=== PATIENT | male | born 1975 ===

== ENCOUNTER 2017-04-26 14:36 | Inpatient (IN) | payer OTHER ==
[2017-04-26] MEDS ORDERED: Sodium Chloride 0.9% 1,000 ML IV STA ×2 (16:06→19:59)
[2017-04-26] MEDS ORDERED: HYDROmorphone 0.5 mg/0.5 ml ISec IVP STA (16:06)
[2017-04-26 16:31] LABS: BASO # 0.1 K/uL (0.0-0.2); BASO % 0.5 % (0.0-2.0); EOS # 0.1 K/uL (0.0-0.7); EOS % 0.4 % (0.0-4.0); HEMATOCRIT 46.3 % (35.0-51.0); LYMPH # 1.4 K/uL (1.0-4.3); LYMPH % 8.2 % (20.0-40.0); MEAN CELL VOLUME 79.1 fl (80.0-94.0); MEAN CORPUSCULAR HEMOGLOBIN 26.4 pg (27.0-31.0); MEAN CORPUSCULAR HGB CONC 33.4 g/dL (33.0-37.0); MEAN PLATELET VOLUME 7.8 fl (7.2-11.7); MONO # 1.4 K/uL (0.0-0.8); MONO % 7.9 % (0.0-10.0); NEUT # 14.5 K/uL (1.8-7.0); NRBC % 0.2 % (0.0-0.0); PLATELET COUNT 174 K/uL (130-400); RED CELL DISTRIBUTION WIDTH 13.6 % (11.5-14.5); WHITE BLOOD COUNT 17.5 K/uL (4.8-10.8)
--- NOTE | 2017-04-26 16:32 | ED PDOC ---
HPI: Abdomen Time Seen by Provider: 04/26/17 15:28 Chief Complaint (Nursing): Abdominal Pain Chief Complaint (Provider): Abdominal Pain History Per: Patient History/Exam Limitations: no limitations Onset/Duration Of Symptoms: Days (x1) Location Of Pain/Discomfort: RLQ Associated Symptoms: Nausea. denies: Vomiting, Diarrhea, Constipation Additional Complaint(s): Davis Blanchard is a 41 year old male, with no past medical history, who presents to the emergency department complaining of abdominal pain associated with nausea onset since midnight. Patient saw primary care physician this morning and was told if pain moves to right lower quadrant to go to the ED. Patient denies any vomiting, constipation or diarrhea. No further medical complaints. PMD: None provided. Past Medical History Reviewed: Historical Data, Nursing Documentation, Vital Signs Vital Signs: Last Vital Signs Temp 98.5 F 04/28/17 08:40 Pulse 59 L 04/28/17 08:40 Resp 20 04/28/17 08:40 BP 124/76 04/28/17 08:40 Pulse Ox 96 04/28/17 08:40 - Surgical History Surgical History: No Surg Hx - Family History Family History: States: Unknown Family Hx - Social History Current smoker - smoking cessation education provided: No Alcohol: None Drugs: Denies - Home Medications Home Medications: Ambulatory Orders Medication Instructions Recorded Acetaminophen [Tylenol 325mg tab] 650 mg PO Q4 PRN tab 04/28/17 Amoxicillin/Clavulanate [Augmentin 1 tab PO BID #14 tab 04/28/17 875 MG-125 MG] oxyCODONE/Acetaminophen [Percocet 1 tab PO Q6 PRN #10 tab 04/28/17 5/325 mg Tab] - Allergies Allergies/Adverse Reactions: Allergies Allergy/AdvReac Type Severity Reaction Status Date / Time No Known Allergies Allergy Verified 04/26/17 15:07 Review of Systems ROS Statement: Except As Marked, All Systems Reviewed And Found Negative Gastrointestinal: Positive for: Nausea, Abdominal Pain (RLQ). Negative for: Vomiting, Diarrhea, Constipation Physical Exam - Reviewed Nursing Documentation Reviewed: Yes Vital Signs Reviewed: Yes - Physical Exam Appears: Positive for: Non-toxic. Negative for: Well (Moderate painful distress ) Head Exam: Positive for: ATRAUMATIC, NORMAL INSPECTION, NORMOCEPHALIC Skin: Positive for: Normal Color, Warm, Dry Eye Exam: Positive for: EOMI, Normal appearance, PERRL Neck: Positive for: Normal, Painless ROM, Supple Cardiovascular/Chest: Positive for: Regular Rate, Rhythm. Negative for: Murmur Respiratory: Positive for: Normal Breath Sounds. Negative for: Respiratory Distress Gastrointestinal/Abdominal: Positive for: Normal Exam, Bowel Sounds, Tenderness (right lower quadrant ), Guarding Back: Positive for: Normal Inspection (No midline tenderness). Negative for: L CVA Tenderness, R CVA Tenderness Extremity: Positive for: Normal ROM. Negative for: Pedal Edema, Deformity, Swelling Neurologic/Psych: Positive for: Alert, Oriented - Laboratory Results Result Diagrams: 04/28/17 05:30 04/28/17 05:30 - ECG O2 Sat by Pulse Oximetry: 98 (RA) Pulse Ox Interpretation: Normal Medical Decision Making Medical Decision Making: Initial Impression: Appendicitis Initial Plan: --Abd & Pelvis IV Contrast only [CT] --EKG --Comp Metabolic Panel --CBC w/ differential --PTT --PT --Dilaudid 1 mg IVP --NS IV 1,000 ml @ 1,000 mls/hr --Zofran Inj 4 mg IV --Urinalysis --reevaluation Accession No. : [id number] Patient Name / ID : GLADIS KELLY H / [id number] Exam Date : 04/26/2017 18:21:08 ( Approved ) Study Comment : Sex / Age : M / 41Y Creator : Shannon Melvin MD Dictator : Shannon Melvin MD Customer Support Specialist : Hair Blender : Approver2 : Report Date : 04/27/2017 09:11:57 My Comment : PROCEDURE: CT Abdomen and Pelvis with contrast HISTORY: RLQ pain COMPARISON: None. TECHNIQUE: CT scan of the abdomen and pelvis was performed without administration of intravenous contrast. Oral contrast was not administered. Coronal and sagittal reformatted images were obtained. Contrast dose: 95 mL Omnipaque 300 Radiation dose: Total exam DLP = 920.31 mGy-cm. This CT exam was performed using one or more of the following dose reduction techniques: Automated exposure control, adjustment of the mA and/or kV according to patient size, and/or use of iterative reconstruction technique. FINDINGS: LOWER THORAX: There is bibasilar subsegmental atelectasis. LIVER: There is mild hepatomegaly and there is diffuse fatty infiltration. No gross lesion or ductal dilatation. GALLBLADDER AND BILE DUCTS: Unremarkable. PANCREAS: The pancreas is normal in size and there is homogeneous enhancement. No gross lesion or ductal dilatation. SPLEEN: There is borderline splenomegaly. ADRENALS: Both adrenal glands are normal in size without discrete nodule. KIDNEYS AND URETERS: Both kidneys are normal in size and there is homogeneous enhancement. No hydronephrosis. No solid mass. VASCULATURE: No aortic aneurysm. BOWEL: The small bowel loops are normal in caliber. The colon is unremarkable. No bowel dilatation or obstruction. APPENDIX: A long retrocecal appendix is distended and measures 13 mm. There is wall thickening with significant surrounding inflammatory changes and small amount of fluid in the right lower quadrant. No perforation or abscess PERITONEUM: Unremarkable. No free fluid. No free air. LYMPH NODES: Unremarkable. No enlarged lymph nodes. BLADDER: Normal in appearance. REPRODUCTIVE: Unremarkable. BONES: No acute fracture. Within normal limits for the patient's age. OTHER FINDINGS: None. IMPRESSION: Acute appendicitis. No perforation or abscess. Mild hepatosplenomegaly. Fatty liver. A preliminary report was provided by [facility] services. Scribe Attestation: Documented by Davey Anand, acting as a scribe for Pia Laurent MD Provider Scribe Attestation: All medical record entries made by the Scribe were at my direction and personally dictated by me. I have reviewed the chart and agree that the record accurately reflects my personal performance of the history, physical exam, medical decision making, and the department course for this patient. I have also personally directed, reviewed, and agree with the discharge instructions and disposition. Disposition - Clinical Impression Clinical Impression: Appendicitis - Patient ED Disposition Is Patient to be Admitted: Yes - Disposition Disposition Time: 19:57 Condition: STABLE - Pt Status Changed To: Hospital Disposition Of: Inpatient - Admit Certification Admit to Inpatient:: After my assessment, the patient will require hospitalization for at least two midnights. This is because of the severity of symptoms shown, intensity of services needed, and/or the medical risk in this patient being treated as an outpatient. - POA Present On Arrival: None
[2017-04-26 16:40] LABS: ALB/GLOB RATIO 1.5 (1.0-2.1); ALKALINE PHOSPHATASE 74 U/L (38-126); ALT/SGPT 59 U/L (21-72); AST/SGOT 40 U/L (17-59); BLOOD UREA NITROGEN 12 mg/dl (9-20); CARBON DIOXIDE 27 mmol/L (22-30); CHLORIDE 100 mmol/L (98-107); GFR AFRICAN-AMERICAN > 60; GLUCOSE,RANDOM 117 mg/dL (75-110); PARTIAL THROMBOPLASTIN TIME 27.9 Seconds (25.6-37.1); SODIUM 140 mmol/l (132-148)
[2017-04-26 16:58] LABS: RBC URINE 2 /hpf (0-3); URINE BACTERIA RARE (<OCC); URINE BILIRUBIN NEGATIVE (NEGATIVE); URINE BLOOD NEGATIVE (NEGATIVE); URINE COLOR YELLOW (YELLOW); URINE GLUCOSE (UA) NEG (Normal); URINE KETONE TRACE mg/dL (NEGATIVE); URINE LEUKOCYTE ESTERASE NEG Leu/uL (Negative); URINE PROTEIN 30 mg/dL (NEGATIVE); URINE UROBILINOGEN 0.2-1.0 mg/dL (0.2-1.0); WBC URINE < 1 /hpf (0-5)
[2017-04-26 17:47] LABS: EOSINOPHIL 1 % (0-7); LARGE PLATELETS PRESENT; NEUTROPHIL 78 % (42-75); TOTAL CELLS COUNTED 100
[2017-04-26] MEDS ORDERED: Iohexol 300 100 ML IJ ONE (18:14)
[2017-04-26] MEDS ORDERED: Sodium Chloride 0.9% 50 ML IV ONE (18:14)
--- NOTE | 2017-04-26 19:35 | ED PDOC ---
- Laboratory Results Result Diagrams: 04/28/17 05:30 04/28/17 05:30 - ECG O2 Sat by Pulse Oximetry: 98 (RA) Medical Decision Making Medical Decision Makin Patient endorsed to me by Dr. Laurent. Rule out appendicitis 1925 Abd/Pelvis CT FINDINGS: Lower thorax: Heart size is normal. There is a small hiatal hernia. There is atelectasis and scarring at the lung bases. ABDOMEN: Liver: The liver is mildly enlarged. There is fatty infiltration. Gallbladder and bile ducts: unremarkable Pancreas: unremarkable Spleen: unremarkable Adrenals: unremarkable Kidneys and ureters: unremarkable Stomach and bowel: unremarkable Appendix: Stomach is almost completely empty. Rotation is normal. There are mildly dilated small bowel loops in the left flank. There are air-fluid levels. Dilatation decreases distally. There is mild terminal ileal wall thickening. The appendix is retrocecal. There is diffuse wall thickening there is only minimal fluid in the appendiceal lumen. There is adjacent fluid in the right flank. Maximal diameter is approximately 12 mm. Colon is incompletely distended which limits evaluation. PELVIS: Bladder: unremarkable Reproductive: Seminal vesicles and prostate are unremarkable. ABDOMEN and PELVIS: Intraperitoneal space: There is inflammation and edema in the right flank. There is fluid in the right lower quadrant in right colic gutter.There is no free air. Bones/joints: unremarkable Soft tissues: There is a small fat containing umbilical hernia. Vasculature: Vascular structures are unremarkable. Lymph nodes: There is shotty mesenteric adenopathy. There are no acute osseous abnormalities. There is partial ankylosis of the sacroiliac joints left greater than right. There is a small bone islands in the femoral heads IMPRESSION: Retrocecal appendix with appendicitis, adjacent fluid suggest rupture; ileus; mildly enlarged fatty liver Additional findings as described above. 1929 Received call from radiologist. Its a ruptured retrocecal appendicitis. [address] García. He will not operate but wants [employer] to see patient. He wants morning labs and agrees with antibiotics that I ordered. 2029 -Spoke to salesperson surgical appliances and will see the patient. iv abx ordered, pt made aware of diagnosis. dx ruptured appendicitis Disposition Counseled Patient/Family Regarding: Studies Performed, Diagnosis - Clinical Impression Clinical Impression: Appendicitis - POA Present On Arrival: None - Disposition Disposition: Routine/Home Disposition Time: 19:30 Condition: STABLE
[2017-04-26] MEDS ORDERED: Piperacillin/Tazobact 4.5 GM in Sodium Chloride 0.9% 100 ML IVPB STA (19:40)
[2017-04-26] MEDS ORDERED: HYDROmorphone 0.5 mg/0.5 ml ISec IVP PRN (21:06)
--- NOTE | 2017-04-26 21:49 | CP.PCM.CON ---
<Pratima Velazquez - Last Filed: 04/26/17 21:59> History of Present Illness - History of Present Illness History of Present Illness: Surgery: Dr. García Reason for consult: perforated appendicitis CC: Abdominal pain, nausea HPI: Patient is a 41 y/o male who presents complaining of acute onset of diffuse abdominal pain that started around midnight last night. Patient reports the pain woke him from sleep. He describes the pain as sharp and unrelenting. He thought he might have a "stomach bug" so her reports attempting to induce vomiting which did not relieve the pain. He reports associated diarrhea. He was evaluated by primary care doctor who instructed patient to go to ER if pain localized to right side. Patient stated throughout that day he noticed the pain migrating to the RLQ primarily although the pain remained diffuse as well. He reports decreased appetite and small episodes of emesis with attempts of eating. He denies f/c. PMH: denies PSH: tonsillectomy Social: , denies ETOH, tobacco, or drug use Review of Systems - Review of Systems All systems: reviewed and no additional remarkable complaints except Review of Systems: unless stated in HPI Past Patient History - Infectious Disease Hx of Infectious Diseases: None - Past Social History Alcohol: None Drugs: Denies - CARDIAC Hx Cardiac Disorders: No - PULMONARY Hx Respiratory Disorders: No - NEUROLOGICAL Hx Neurological Disorder: No - HEENT Hx HEENT Problems: No - ENDOCRINE/METABOLIC Hx Endocrine Disorders: No - MUSCULOSKELETAL/RHEUMATOLOGICAL Hx Musculoskeletal Disorders: No - PSYCHIATRIC Hx Substance Use: No - SURGICAL HISTORY Hx Surgeries: No Meds Allergies/Adverse Reactions: Allergies Allergy/AdvReac Type Severity Reaction Status Date / Time No Known Allergies Allergy Verified 04/26/17 15:07 - Medications Medications: Current Medications Acetaminophen (Tylenol 325mg Tab) 650 mg PO Q4 PRN PRN Reason: Fever >100.4 F Hydromorphone HCl (Dilaudid) 1 mg IVP Q4 PRN PRN Reason: Pain, severe (8-10) Sodium Chloride (Sodium Chloride 0.9%) 1,000 mls @ 150 mls/hr IV .Q6H40M STA Stop: 04/27/17 02:38 Last Admin: 04/26/17 20:08 Dose: 150 mls/hr Piperacillin Sod/Tazobactam (Sod 3.375 gm/ Sodium Chloride) 100 mls @ 100 mls/ hr IVPB Q6 DANIELA PRN Reason: Protocol Sodium Chloride (Sodium Chloride 0.9%) 1,000 mls @ 150 mls/hr IV .Q6H40M [facility] Stop: 04/27/17 21:08 Morphine Sulfate (Morphine) 4 mg IVP Q4 PRN PRN Reason: Pain, moderate (4-7) Ondansetron HCl (Zofran Inj) 4 mg IVP Q6 PRN PRN Reason: Nausea/Vomiting Physical Exam - Constitutional Appears: Non-toxic, No Acute Distress - Head Exam Head Exam: ATRAUMATIC, NORMOCEPHALIC - Eye Exam Eye Exam: EOMI, Normal appearance - ENT Exam ENT Exam: Mucous Membranes Moist - Respiratory Exam Respiratory Exam: NORMAL BREATHING PATTERN. absent: Respiratory Distress - Cardiovascular Exam Cardiovascular Exam: REGULAR RHYTHM. absent: Tachycardia - GI/Abdominal Exam GI & Abdominal Exam: Guarding (RLQ), Rebound, Soft, Tenderness (+McBurney's, + Rovsing's ). absent: Hernia, Rigid - Extremities Exam Extremities exam: Positive for: normal inspection. Negative for: calf tenderness - Neurological Exam Neurological exam: Alert, Oriented x3 - Psychiatric Exam Psychiatric exam: Normal Affect, Normal Mood - Skin Skin Exam: Dry, Normal Color, Warm Results - Vital Signs Recent Vital Signs: Last Vital Signs Temp 98.8 F 04/26/17 15:04 Pulse 79 04/26/17 15:04 Resp 16 04/26/17 15:04 BP 121/80 04/26/17 15:04 Pulse Ox 98 04/26/17 21:10 - Labs Result Diagrams: 04/26/17 16:25 04/26/17 16:25 Labs: Laboratory Results - last 24 hr 04/26/17 04/26/17 04/26/17 16:25 16:25 16:25 WBC 17.5 H RBC 5.86 Hgb 15.5 Hct 46.3 MCV 79.1 L MCH 26.4 L MCHC 33.4 RDW 13.6 Plt Count 174 MPV 7.8 Neut % (Auto) 83.0 H Lymph % (Auto) 8.2 L Harris % (Auto) 7.9 Eos % (Auto) 0.4 Baso % (Auto) 0.5 Neut # 14.5 H Lymph # 1.4 Harris # 1.4 H Eos # 0.1 Baso # 0.1 Neutrophils % (Manual) 78 H Band Neutrophils % 3 H Lymphocytes % (Manual) 8 L Monocytes % (Manual) 10 Eosinophils % (Manual) 1 Platelet Estimate Normal Large Platelets Present Hypochromasia (manual) Slight Microcytosis (manual) Slight PT 12.2 INR 1.1 APTT 27.9 Sodium 140 Potassium 4.0 Chloride 100 Carbon Dioxide 27 Anion Gap 17 BUN 12 Creatinine 0.9 Est GFR ( Amer) > 60 Est GFR (Non-Af Amer) > 60 Random Glucose 117 H Calcium 9.0 Total Bilirubin 2.0 H AST 40 ALT 59 Alkaline Phosphatase 74 Total Protein 8.0 Albumin 4.8 Globulin 3.2 Albumin/Globulin Ratio 1.5 Urine Color Urine Clarity Urine pH Ur Specific Sidney Urine Protein Urine Glucose (UA) Urine Ketones Urine Blood Urine Nitrate Urine Bilirubin Urine Urobilinogen Ur Leukocyte Esterase Urine RBC (Auto) Urine Microscopic WBC Urine Bacteria 04/26/17 16:48 WBC RBC Hgb Hct MCV MCH MCHC RDW Plt Count MPV Neut % (Auto) Lymph % (Auto) Harris % (Auto) Eos % (Auto) Baso % (Auto) Neut # Lymph # Harris # Eos # Baso # Neutrophils % (Manual) Band Neutrophils % Lymphocytes % (Manual) Monocytes % (Manual) Eosinophils % (Manual) Platelet Estimate Large Platelets Hypochromasia (manual) Microcytosis (manual) PT INR APTT Sodium Potassium Chloride Carbon Dioxide Anion Gap BUN Creatinine Est GFR ( Amer) Est GFR (Non-Af Amer) Random Glucose Calcium Total Bilirubin AST ALT Alkaline Phosphatase Total Protein Albumin Globulin Albumin/Globulin Ratio Urine Color Yellow Urine Clarity Slighty-cloudy Urine pH 6.0 Ur Specific Sidney 1.027 Urine Protein 30 Urine Glucose (UA) Neg Urine Ketones Trace Urine Blood Negative Urine Nitrate Negative Urine Bilirubin Negative Urine Urobilinogen 0.2-1.0 Ur Leukocyte Esterase Neg Urine RBC (Auto) 2 Urine Microscopic WBC < 1 Urine Bacteria Rare Assessment & Plan - Assessment and Plan (Free Text) Assessment: 41 y/o male w/ acute perforated appendicitis Plan: -NPO -IVFs -IV abx -pain control -serial abd exams -possible OR tomorrow pending clinical course -d/w Dr. García AKWhite PGY3 <Yash García - Last Filed: 04/27/17 13:25> History of Present Illness - History of Present Illness History of Present Illness: Patient was seen and examined at the bedside. Agree with resident's note above. Meds - Medications Medications: Current Medications Acetaminophen (Tylenol 325mg Tab) 650 mg PO Q4 PRN PRN Reason: Fever >100.4 F Dexamethasone (Decadron Inj) 4 mg IVP ONCE PRN PRN Reason: Nausea/Vomiting Stop: 04/27/17 14:59 Enoxaparin Sodium (Lovenox) 40 mg SC DAILY DANIELA PRN Reason: Protocol Hydromorphone HCl (Dilaudid) 1 mg IVP Q4 PRN PRN Reason: Pain, severe (8-10) Hydromorphone HCl (Dilaudid) 0.5 mg IVP Q5M PRN PRN Reason: Pain, severe (8-10) Stop: 04/27/17 14:58 Piperacillin Sod/Tazobactam (Sod 3.375 gm/ Sodium Chloride) 100 mls @ 100 mls/ hr IVPB Q6 DANIELA PRN Reason: Protocol Last Admin: 04/27/17 09:58 Dose: 100 mls/hr Sodium Chloride (Sodium Chloride 0.9%) 1,000 mls @ 150 mls/hr IV .Q6H40M [facility] Stop: 04/27/17 21:08 Last Admin: 04/27/17 12:03 Dose: Not Given Metoclopramide HCl (Reglan) 10 mg IVP ONCE PRN PRN Reason: Nausea/Vomiting Stop: 04/27/17 14:59 Morphine Sulfate (Morphine) 4 mg IVP Q4 PRN PRN Reason: Pain, moderate (4-7) Ondansetron HCl (Zofran Inj) 4 mg IVP Q6 PRN PRN Reason: Nausea/Vomiting Results - Vital Signs Recent Vital Signs: Last Vital Signs Temp 98.9 F 04/27/17 07:24 Pulse 73 04/27/17 07:24 Resp 19 04/27/17 07:24 BP 112/57 L 04/27/17 07:24 Pulse Ox 96 04/27/17 07:24 - Labs Result Diagrams: 04/27/17 06:00 04/27/17 05:40 Labs: Laboratory Results - last 24 hr 04/26/17 04/26/1704/26/17 16:25 16:25 16:25 WBC 17.5 H RBC 5.86 Hgb 15.5 Hct 46.3 MCV 79.1 L MCH 26.4 L MCHC 33.4 RDW 13.6 Plt Count 174 MPV 7.8 Neut % (Auto) 83.0 H Lymph % (Auto) 8.2 L Harris % (Auto) 7.9 Eos % (Auto) 0.4 Baso % (Auto) 0.5 Neut # 14.5 H Lymph # 1.4 Harris # 1.4 H Eos # 0.1 Baso # 0.1 Neutrophils % (Manual) 78 H Band Neutrophils % 3 H Lymphocytes % (Manual) 8 L Monocytes % (Manual) 10 Eosinophils % (Manual) 1 Platelet Estimate Normal Large Platelets Present Hypochromasia (manual) Slight Microcytosis (manual) Slight PT 12.2 INR 1.1 APTT 27.9 Sodium 140 Potassium 4.0 Chloride 100 Carbon Dioxide 27 Anion Gap 17 BUN 12 Creatinine 0.9 Est GFR ( Amer) > 60 Est GFR (Non-Af Amer) > 60 Random Glucose 117 H Calcium 9.0 Total Bilirubin 2.0 H AST 40 ALT 59 Alkaline Phosphatase 74 Total Protein 8.0 Albumin 4.8 Globulin 3.2 Albumin/Globulin Ratio 1.5 Urine Color Urine Clarity Urine pH Ur Specific Sidney Urine Protein Urine Glucose (UA) Urine Ketones Urine Blood Urine Nitrate Urine Bilirubin Urine Urobilinogen Ur Leukocyte Esterase Urine RBC (Auto) Urine Microscopic WBC Urine Bacteria 04/26/17 04/27/17 04/27/17 16:48 05:40 06:00 WBC 12.5 H RBC 5.42 Hgb 14.5 Hct 43.6 MCV 80.5 MCH 26.7 L MCHC 33.2 RDW 13.7 Plt Count 171 MPV 7.8 Neut % (Auto) 72.2 Lymph % (Auto) 17.0 L Harris % (Auto) 6.6 Eos % (Auto) 3.5 Baso % (Auto) 0.7 Neut # 9.0 H Lymph # 2.1 Harris # 0.8 Eos # 0.4 Baso # 0.1 Neutrophils % (Manual) Band Neutrophils % Lymphocytes % (Manual) Monocytes % (Manual) Eosinophils % (Manual) Platelet Estimate Large Platelets Hypochromasia (manual) Microcytosis (manual) PT INR APTT Sodium 141 Potassium 4.2 Chloride 105 Carbon Dioxide 26 Anion Gap 14 BUN 12 Creatinine 1.0 Est GFR ( Amer) > 60 Est GFR (Non-Af Amer) > 60 Random Glucose 113 H Calcium 8.4 Total Bilirubin 2.2 H AST 30 ALT 43 Alkaline Phosphatase 65 Total Protein 7.1 Albumin 4.1 Globulin 3.0 Albumin/Globulin Ratio 1.4 Urine Color Yellow Urine Clarity Slighty-cloudy Urine pH 6.0 Ur Specific Sidney 1.027 Urine Protein 30 Urine Glucose (UA) Neg Urine Ketones Trace Urine Blood Negative Urine Nitrate Negative Urine Bilirubin Negative Urine Urobilinogen 0.2-1.0 Ur Leukocyte Esterase Neg Urine RBC (Auto) 2 Urine Microscopic WBC < 1 Urine Bacteria Rare
[2017-04-26] MEDS ORDERED: Morphine 4 MG/ML VIAL IVP PRN (23:50)
[2017-04-27] MEDS: Piperacillin/Tazobact 3.375 GM in Sodium Chloride 0.9% 100 ML IVPB SCH ×5 (04:42→21:11)
[2017-04-27 06:48] LABS: BASO # 0.1 K/uL (0.0-0.2); BASO % 0.7 % (0.0-2.0); EOS # 0.4 K/uL (0.0-0.7); EOS % 3.5 % (0.0-4.0); HEMATOCRIT 43.6 % (35.0-51.0); LYMPH # 2.1 K/uL (1.0-4.3); MEAN CELL VOLUME 80.5 fl (80.0-94.0); MEAN CORPUSCULAR HEMOGLOBIN 26.7 pg (27.0-31.0); MEAN CORPUSCULAR HGB CONC 33.2 g/dL (33.0-37.0); MEAN PLATELET VOLUME 7.8 fl (7.2-11.7); MONO # 0.8 K/uL (0.0-0.8); MONO % 6.6 % (0.0-10.0); NEUT % 72.2 % (50.0-75.0); NRBC % 0.2 % (0.0-0.0); RED CELL DISTRIBUTION WIDTH 13.7 % (11.5-14.5); WHITE BLOOD COUNT 12.5 K/uL (4.8-10.8)
--- NOTE | 2017-04-27 07:45 | CP.PCM.HP ---
History of Present Illness - History of Present Illness History of Present Illness: pt admitted for acute ap. no f/c, n/v/d at present. pain controlled w/ meds. 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 at [facility] still w/ rlq tenderness. ct concerning for perf ap. surgical consult appriciated Present on Admission - Present on Admission Any Indicators Present on Admission: No Review of Systems - Gastrointestinal Gastrointestinal: As Per HPI, Abdominal Pain Past Patient History - Infectious Disease Hx of Infectious Diseases: None - Past Medical History & Family History Past Medical History?: No - Past Social History Smoking Status: Never Smoked - CARDIAC Hx Cardiac Disorders: No - PULMONARY Hx Respiratory Disorders: No - NEUROLOGICAL Hx Neurological Disorder: No - HEENT Hx HEENT Problems: No - ENDOCRINE/METABOLIC Hx Endocrine Disorders: No - MUSCULOSKELETAL/RHEUMATOLOGICAL Hx Falls: No - PSYCHIATRIC Hx Substance Use: No - SURGICAL HISTORY Hx Surgeries: Yes Hx Tonsillectomy: Yes - ANESTHESIA Hx Anesthesia: Yes Hx Anesthesia Reactions: No Meds Allergies/Adverse Reactions: Allergies Allergy/AdvReac Type Severity Reaction Status Date / Time No Known Allergies Allergy Verified 04/26/17 15:07 Physical Exam - Constitutional Appears: Well, Non-toxic, No Acute Distress - Head Exam Head Exam: ATRAUMATIC, NORMAL INSPECTION, NORMOCEPHALIC - Eye Exam Eye Exam: EOMI, Normal appearance, PERRL Pupil Exam: NORMAL ACCOMODATION, PERRL - ENT Exam ENT Exam: Mucous Membranes Moist, Normal Exam - Neck Exam Neck exam: Positive for: Normal Inspection - Respiratory Exam Respiratory Exam: Clear to Auscultation Bilateral, NORMAL BREATHING PATTERN - Cardiovascular Exam Cardiovascular Exam: REGULAR RHYTHM, RRR, +S1, +S2 - GI/Abdominal Exam GI & Abdominal Exam: Normal Bowel Sounds, Soft, Tenderness - Exam Speculum exam: NORMAL SPECULUM EXAM - Extremities Exam Extremities exam: Positive for: full ROM, normal capillary refill, normal inspection, pedal pulses present - Back Exam Back exam: NORMAL INSPECTION - Neurological Exam Neurological exam: Alert, CN II-XII Intact, Normal Gait, Oriented x3, Reflexes Normal - Psychiatric Exam Psychiatric exam: Normal Affect, Normal Mood - Skin Skin Exam: Dry, Intact, Normal Color, Warm Results - Vital Signs Recent Vital Signs: Last Vital Signs Temp 98.9 F 04/27/17 07:24 Pulse 73 04/27/17 07:24 Resp 19 04/27/17 07:24 BP 112/57 L 04/27/17 07:24 Pulse Ox 96 04/27/17 07:24 - Labs Result Diagrams: 04/27/17 06:00 04/27/17 05:40 Labs: Laboratory Results - last 24 hr 04/26/17 04/26/17 04/26/17 16:25 16:25 16:25 WBC 17.5 H RBC 5.86 Hgb 15.5 Hct 46.3 MCV 79.1 L MCH 26.4 L MCHC 33.4 RDW 13.6 Plt Count 174 MPV 7.8 Neut % (Auto) 83.0 H Lymph % (Auto) 8.2 L [place] % (Auto) 7.9 Eos % (Auto) 0.4 Baso % (Auto) 0.5 Neut # 14.5 H Lymph # 1.4 [place] # 1.4 H Eos # 0.1 Baso # 0.1 Neutrophils % (Manual) 78 H Band Neutrophils % 3 H Lymphocytes % (Manual) 8 L Monocytes % (Manual) 10 Eosinophils % (Manual) 1 Platelet Estimate Normal Large Platelets Present Hypochromasia (manual) Slight Microcytosis (manual) Slight PT 12.2 INR 1.1 APTT 27.9 Sodium 140 Potassium 4.0 Chloride 100 Carbon Dioxide 27 Anion Gap 17 BUN 12 Creatinine 0.9 Est GFR ( Amer) > 60 Est GFR (Non-Af Amer) > 60 Random Glucose 117 H Calcium 9.0 Total Bilirubin 2.0 H AST 40 ALT 59 Alkaline Phosphatase 74 Total Protein 8.0 Albumin 4.8 Globulin 3.2 Albumin/Globulin Ratio 1.5 Urine Color Urine Clarity Urine pH Ur Specific [place] Urine Protein Urine Glucose (UA) Urine Ketones Urine Blood Urine Nitrate Urine Bilirubin Urine Urobilinogen Ur Leukocyte Esterase Urine RBC (Auto) Urine Microscopic WBC Urine Bacteria 04/26/17 04/27/17 16:48 06:00 WBC 12.5 H RBC 5.42 Hgb 14.5 Hct 43.6 MCV 80.5 MCH 26.7 L MCHC 33.2 RDW 13.7 Plt Count 171 MPV 7.8 Neut % (Auto) 72.2 Lymph % (Auto) 17.0 L [place] % (Auto) 6.6 Eos % (Auto) 3.5 Baso % (Auto) 0.7 Neut # 9.0 H Lymph # 2.1 [place] # 0.8 Eos # 0.4 Baso # 0.1 Neutrophils % (Manual) Band Neutrophils % Lymphocytes % (Manual) Monocytes % (Manual) Eosinophils % (Manual) Platelet Estimate Large Platelets Hypochromasia (manual) Microcytosis (manual) PT INR APTT Sodium Potassium Chloride Carbon Dioxide Anion Gap BUN Creatinine Est GFR ( Amer) Est GFR (Non-Af Amer) Random Glucose Calcium Total Bilirubin AST ALT Alkaline Phosphatase Total Protein Albumin Globulin Albumin/Globulin Ratio Urine Color Yellow Urine Clarity Slighty-cloudy Urine pH 6.0 Ur Specific [place] 1.027 Urine Protein 30 Urine Glucose (UA) Neg Urine Ketones Trace Urine Blood Negative Urine Nitrate Negative Urine Bilirubin Negative Urine Urobilinogen 0.2-1.0 Ur Leukocyte Esterase Neg Urine RBC (Auto) 2 Urine Microscopic WBC < 1 Urine Bacteria Rare Assessment & Plan (1) Appendicitis Assessment and Plan: zosyn pain and nausea control surgery cleared for intervention as indicated by surgery Status: Acute (2) DVT prophylaxis Assessment and Plan: scd and ae hose ambulation Status: Acute Decision To Admit - Pt Status Changed To: Hospital Disposition Of: Inpatient - Admit Certification Admit to Inpatient:: After my assessment, the patient will require hospitalization for at least two midnights. This is because of the severity of symptoms shown, intensity of services needed, and/or the medical risk in this patient being treated as an outpatient. - . Bed Request Type: Med/Surg Admitting Physician: Anika Shah
--- NOTE | 2017-04-27 08:15 | CARD ---
APPROVED REPORT EKG Measurement Heart [id number] <Conclusion> Normal sinus rhythm Rightward axis Borderline ECG
[2017-04-27 08:18] LABS: ALB/GLOB RATIO 1.4 (1.0-2.1); ALKALINE PHOSPHATASE 65 U/L (38-126); ALT/SGPT 43 U/L (21-72); AST/SGOT 30 U/L (17-59); BILIRUBIN,TOTAL 2.2 mg/dl (0.2-1.3); BLOOD UREA NITROGEN 12 mg/dl (9-20); CALCIUM 8.4 mg/dL (8.4-10.2); CARBON DIOXIDE 26 mmol/L (22-30); CHLORIDE 105 mmol/L (98-107); GFR AFRICAN-AMERICAN > 60; GLUCOSE,RANDOM 113 mg/dL (75-110); POTASSIUM 4.2 MMOL/L (3.6-5.0); SODIUM 141 mmol/l (132-148); TOTAL PROTEIN 7.1 G/DL (6.3-8.2)
--- NOTE | 2017-04-27 09:17 | CT ---
PROCEDURE: CT Abdomen and Pelvis with contrast HISTORY: RLQ pain COMPARISON: None. TECHNIQUE: CT scan of the abdomen and pelvis was performed without administration of intravenous contrast. Oral contrast was not administered. Coronal and sagittal reformatted images were obtained. Contrast dose: 95 mL Omnipaque 300 Radiation dose: Total exam DLP = 920.31 mGy-cm. This CT exam was performed using one or more of the following dose reduction techniques: Automated exposure control, adjustment of the mA and/or kV according to patient size, and/or use of iterative reconstruction technique. FINDINGS: LOWER THORAX: There is bibasilar subsegmental atelectasis. LIVER: There is mild hepatomegaly and there is diffuse fatty infiltration. No gross lesion or ductal dilatation. GALLBLADDER AND BILE DUCTS: Unremarkable. PANCREAS: The pancreas is normal in size and there is homogeneous enhancement. No gross lesion or ductal dilatation. SPLEEN: There is borderline splenomegaly. ADRENALS: Both adrenal glands are normal in size without discrete nodule. KIDNEYS AND URETERS: Both kidneys are normal in size and there is homogeneous enhancement. No hydronephrosis. No solid mass. VASCULATURE: No aortic aneurysm. BOWEL: The small bowel loops are normal in caliber. The colon is unremarkable. No bowel dilatation or obstruction. APPENDIX: A long retrocecal appendix is distended and measures 13 mm. There is wall thickening with significant surrounding inflammatory changes and small amount of fluid in the right lower quadrant. No perforation or abscess PERITONEUM: Unremarkable. No free fluid. No free air. LYMPH NODES: Unremarkable. No enlarged lymph nodes. BLADDER: Normal in appearance. REPRODUCTIVE: Unremarkable. BONES: No acute fracture. Within normal limits for the patient's age. OTHER FINDINGS: None. IMPRESSION: Acute appendicitis. No perforation or abscess. Mild hepatosplenomegaly. Fatty liver. A preliminary report was provided by [facility].
[2017-04-27] MEDS ORDERED: Influenza Vaccine 18yr & older 0.5 ML/45 MCG SYR IM ONE (10:00)
[2017-04-27] MEDS ORDERED: ceFAZolin IV 1 gm in Dextrose 0 GM/0 ML BAG IVPB ONE (11:40)
[2017-04-27] MEDS ORDERED: Rocuronium 10 mg/ml (5 ml) ONE (11:42)
[2017-04-27] MEDS ORDERED: Propofol 10 mg/ml Inj (20 ML) ONE (11:42)
[2017-04-27] MEDS ORDERED: Midazolam 2 MG/2 ML VIAL ONE (11:42)
[2017-04-27] MEDS ORDERED: Lidocaine 4% (Laryng-O-Jet) Kit MM ONE (11:43)
[2017-04-27] MEDS ORDERED: Succinylcholine 200 mg/10 ml Inj IV ONE (11:43)
[2017-04-27] MEDS ORDERED: Lactated Ringer's 1,000 ML IV ONE ×2 (12:00→13:26)
[2017-04-27] MEDS ORDERED: Sodium Chloride 0.9% 1,000 ML IV ONE (12:00)
[2017-04-27] MEDS: Sodium Chloride 0.9% 1,000 ML IV SCH ×2 (12:03→18:34)
[2017-04-27] MEDS: Bupivacaine 0.5% Inj(30mL) ONE ×2 (12:28→12:48)
[2017-04-27] MEDS ORDERED: Neostigmine Methylsulfate 3mg/3ml Syringe IV ONE (12:34)
[2017-04-27] MEDS ORDERED: HYDROmorphone 0.5 mg/0.5 ml ISec IVP PRN (12:58)
[2017-04-27] MEDS ORDERED: Dexamethasone 4 mg/1 ml IVP PRN (12:58)
--- NOTE | 2017-04-27 13:00 | PCM.SURG1 ---
Surgeon's Initial Post Op Note - Surgeon's Notes Surgeon: Dr. García Assembler Hydraulic Backhoe: Dr. Claros PGY4, Dr. Mcdaniel PGY2 Type of Anesthesia: General Endo Pre-Operative Diagnosis: acute appendicitis Operative Findings: acute appendicitis Post-Operative Diagnosis: acute appendicitis Operation Performed: laparoscopic appendectomy Specimen/Specimens Removed: appendix Estimated Blood Loss: EBL {In ML}: 5 Blood Products Given: N/A Drains Used: No Drains Post-Op Condition: Good Date of Surgery/Procedure: 04/27/17 Time of Surgery/Procedure: 12:00
--- NOTE | 2017-04-27 21:15 | OP ---
PROCEDURE DATE: PREOPERATIVE DIAGNOSIS: Acute appendicitis. POSTOPERATIVE DIAGNOSIS: Acute appendicitis. PROCEDURE: Laparoscopic appendectomy. SURGEON: Yash García MD. KILN PUSHER: . SECOND MULTIPLE SCLEROSIS NURSE: Jonas. ANESTHESIA ADMINISTERED BY: Nereida Thurman MD. TYPE OF ANESTHESIA: General with endotracheal intubation. IV FLUID INTAKE: Crystalloids. ESTIMATED BLOOD LOSS: 5 mL. INTRAOPERATIVE FINDINGS: Acute appendicitis. SPECIMEN: Appendix. BRIEF HISTORY: Mr. Huang Blanchard is a very pleasant 41-year-old gentleman who presented to the hospital complaining of right-sided abdominal pain and upon further investigation, patient was found to have elevated white blood cell count to 17 as well as CAT scan findings significant for acute appendicitis. All the risks and benefits of the procedure were explained to the patient and with the patient having a full understanding of all the risks and benefits involved, informed consent was obtained and patient was taken to the operating room for above-stated procedure. DESCRIPTION OF PROCEDURE: Patient was brought into the operating room and placed supine on the operating room table. Bilateral Flowtron boots were applied to patient's lower extremities. After successful induction of anesthesia and successful endotracheal intubation by the anesthesia team, patient's abdomen was shaved, Root catheter was inserted into the patient's urinary bladder. Subsequent to that, patient's abdomen was prepped with ChloraPrep stick and draped in the standard surgical fashion. Prior to the beginning of the procedure, a time-out was called in the room and everyone in the room were in agreement. Using Veress needle, patient's abdomen was entered at the umbilicus and pneumoperitoneum was achieved with good opening pressures. Once this was accomplished, using an 11-blade scalpel knife, approximately a 5 mm incision was made in the umbilicus in a longitudinal fashion and subsequent to that, a 5 mm trocar was introduced into the patient's abdomen. At that point in time, a 5 mm 0-degree scope was introduced into the patient's abdomen and abdomen was inspected. We immediately were able to visualize some inflammatory changes in right side of the patient's abdomen. Then, attention was turned to the lower mid abdomen. Using an 11-blade scalpel knife, approximately a 5 mm incision was made in a transverse fashion in the lower mid abdomen and subsequent to that, another 5 mm trocar was introduced into the patient's abdomen. At that point in time, attention was turned to the left lower quadrant of the patient's abdomen. Using an 11-blade scalpel knife, approximately a 1 cm incision was made in transverse fashion and subsequent to that, 12 mm trocar was introduced into the patient's abdomen. At this point in time, using 2 graspers, the appendix was mobilized and subsequent to that, using [place] dissector, the window was created between the appendix and the mesoappendix, right at the base of the appendix. At this point in time, appendix was taken with 45 mm blue-load and the Endo MUNIR stapler and subsequent to that, mesoappendix was taken with 2 loads of 45 mm hester and the Endo MUNIR stapler. Once this was accomplished and the appendix was fully mobilized, EndoCatch bag was introduced into the patient's abdomen, appendix was placed inside of the bag, and bag was closed. At that point in time, staple line was inspected for hemostasis and hemostasis was confirmed. The 12 mm trocar together with the EndoCatch bag and appendix were removed from the patient's abdomen and passed off to the [facility] as a specimen. Fascial layer at the 12 mm trocar site was closed with 1 interrupted 0 Vicryl suture on UR-6 needle. Subsequent to that, patient's abdomen was fully desufflated, the rest of the trocars were removed from the patient's abdomen, and skin was closed with 4-0 Monocryl suture in a running subcuticular fashion. At the end of the procedure, incision sites were infiltrated with Marcaine anesthetic. The patient's abdomen was washed and dried and Dermabond was applied to the incision sites. Root catheter was removed from the patient's urinary bladder. Patient was successfully extubated by the anesthesia team, [facility], and taken to the recovery room in a stable condition. At the end of the procedure, all instrument counts, needles, and sponges were correct. Yash García MD
[2017-04-28] MEDS: Piperacillin/Tazobact 3.375 GM in Sodium Chloride 0.9% 100 ML IVPB SCH (04:08)
[2017-04-28] MEDS ORDERED: Oxycodone/Acetaminophen 5/325 mg Tab PO PRN (04:44)
[2017-04-28 07:22] LABS: BASO % 0.5 % (0.0-2.0); EOS # 0.3 K/uL (0.0-0.7); HEMATOCRIT 40.5 % (35.0-51.0); LYMPH # 1.9 K/uL (1.0-4.3); LYMPH % 21.7 % (20.0-40.0); MEAN CELL VOLUME 79.8 fl (80.0-94.0); MEAN CORPUSCULAR HEMOGLOBIN 26.7 pg (27.0-31.0); MEAN CORPUSCULAR HGB CONC 33.5 g/dL (33.0-37.0); MEAN PLATELET VOLUME 7.8 fl (7.2-11.7); MONO # 0.8 K/uL (0.0-0.8); MONO % 8.7 % (0.0-10.0); NEUT # 5.7 K/uL (1.8-7.0); NEUT % 65.1 % (50.0-75.0); NRBC % 0.1 % (0.0-0.0); RED CELL DISTRIBUTION WIDTH 13.7 % (11.5-14.5); WHITE BLOOD COUNT 8.7 K/uL (4.8-10.8)
[2017-04-28 07:35] LABS: BLOOD UREA NITROGEN 10 mg/dl (9-20); CARBON DIOXIDE 29 mmol/L (22-30); CHLORIDE 104 mmol/L (98-107); GFR AFRICAN-AMERICAN > 60; GLUCOSE,RANDOM 102 mg/dL (75-110); POTASSIUM 4.5 MMOL/L (3.6-5.0); SODIUM 143 mmol/l (132-148)
[2017-04-28 08:40] VITALS: BP 124/76; PULSE 59; RESP 20; TEMP 98.5
[2017-04-28] MEDS ORDERED: Enoxaparin 40 mg Syringe SC SCH (09:00)
--- NOTE | 2017-04-28 09:29 | CP.PCM.PN ---
<Jailyn Jacobs - Last Filed: 04/28/17 09:27> Subjective - Date & Time of Evaluation Date of Evaluation: 04/28/17 Time of Evaluation: 08:10 - Subjective Subjective: Patient seen and examined this AM. NAEO. Patient denies pain, nausea, vomiting, tolerating regular diet and reported passing gas. Ambulating and urinating well Objective - Vital Signs/Intake and Output Vital Signs (last 24 hours): Temp Pulse Resp BP Pulse Ox 98.5 F 59 L 20 124/76 96 04/28/17 08:40 04/28/17 08:40 04/28/17 08:40 04/28/17 08:40 04/28/17 08:40 - Medications Medications: Current Medications Acetaminophen (Tylenol 325mg Tab) 650 mg PO Q4 PRN PRN Reason: Fever >100.4 F Enoxaparin Sodium (Lovenox) 40 mg SC DAILY DANIELA PRN Reason: Protocol Last Admin: 04/28/17 08:24 Dose: 40 mg Ondansetron HCl (Zofran Inj) 4 mg IVP Q6 PRN PRN Reason: Nausea/Vomiting Oxycodone/Acetaminophen (Percocet 5/325 Mg Tab) 1 tab PO Q6 PRN PRN Reason: Pain, moderate (4-7) Stop: 05/01/17 04:45 - Labs Labs: 04/28/17 05:30 04/28/17 05:30 PT 12.2 Seconds (9.8-13.1) 04/26/17 16:25 INR 1.1 (0.9-1.2) 04/26/17 16:25 APTT 27.9 Seconds (25.6-37.1) 04/26/17 16:25 - Constitutional Appears: Non-toxic, No Acute Distress - Head Exam Head Exam: ATRAUMATIC, NORMOCEPHALIC - Eye Exam Eye Exam: Normal appearance. absent: Conjunctival injection, Scleral icterus - ENT Exam ENT Exam: Mucous Membranes Moist, Normal Oropharynx - Respiratory Exam Respiratory Exam: NORMAL BREATHING PATTERN. absent: Accessory Muscle Use, Respiratory Distress - Cardiovascular Exam Cardiovascular Exam: RRR - GI/Abdominal Exam GI & Abdominal Exam: Soft, Tenderness. absent: Distended Additional comments: incisions well approximated with dermabond, no drainage or erythema. - Extremities Exam Extremities Exam: absent: Calf Tenderness, Pedal Edema, Tenderness - Neurological Exam Neurological Exam: Alert, Awake, Oriented x3. absent: Abnormal Gait - Psychiatric Exam Psychiatric exam: Normal Affect, Normal Mood - Skin Skin Exam: Dry, Normal Color, Warm Assessment and Plan - Assessment and Plan (Free Text) Assessment: 41M with acute appendicitis POD#1 s/p laparoscopic appendectomy Plan: Patient is clear for d/c from a surgical standpoint with PO antibiotics and pain medication. Patient should follow up with Dr. Garcaí in 2 weeks, may shower and resume reg diet and ADL's but should not lift >10 pounds until cleared by Dr. García. He should return to the ER or call Dr. García's office for fever>100.4, severe nausea and vomiting, or any other concerning symptoms. <Yash García - Last Filed: 04/28/17 13:04> Subjective - Date & Time of Evaluation Time of Evaluation: 12:25 - Subjective Subjective: Patient was seen and examined at the bedside. Agree with resident's note above. Objective - Vital Signs/Intake and Output Vital Signs (last 24 hours): Temp Pulse Resp BP Pulse Ox 98.5 F 59 L 20 124/76 96 04/28/17 08:40 04/28/17 08:40 04/28/17 08:40 04/28/17 08:40 04/28/17 08:40 - Medications Medications: Current Medications Acetaminophen (Tylenol 325mg Tab) 650 mg PO Q4 PRN PRN Reason: Fever >100.4 F Enoxaparin Sodium (Lovenox) 40 mg SC DAILY DANIELA PRN Reason: Protocol Last Admin: 04/28/17 08:24 Dose: 40 mg Ondansetron HCl (Zofran Inj) 4 mg IVP Q6 PRN PRN Reason: Nausea/Vomiting Oxycodone/Acetaminophen (Percocet 5/325 Mg Tab) 1 tab PO Q6 PRN PRN Reason: Pain, moderate (4-7) Stop: 05/01/17 04:45 - Labs Labs: 04/28/17 05:30 04/28/17 05:30 PT 12.2 Seconds (9.8-13.1) 04/26/17 16:25 INR 1.1 (0.9-1.2) 04/26/17 16:25 APTT 27.9 Seconds (25.6-37.1) 04/26/17 16:25
--- NOTE | 2017-04-28 10:25 | CP.PCM.DIS ---
Provider - Provider Date of Admission: 04/26/17 19:57 Attending physician: Anika Shah MD Time Spent in preparation of Discharge (in minutes): 15 Diagnosis - Discharge Diagnosis (1) Appendicitis Status: Acute (2) DVT prophylaxis Status: Acute Hospital Course - Lab Results Lab Results: Micro Results 04/26/17 20:05 Blood-Venous Blood Culture - Preliminary NO GROWTH AFTER 24 HOURS 04/26/17 20:05 Blood-Venous Blood Culture - Preliminary NO GROWTH AFTER 24 HOURS Most Recent Lab Values WBC 8.7 K/uL (4.8-10.8) 04/28/17 05:30 RBC 5.07 Mil/uL (4.40-5.90) 04/28/17 05:30 Hgb 13.6 g/dL (12.0-18.0) 04/28/17 05:30 Hct 40.5 % (35.0-51.0) 04/28/17 05:30 MCV 79.8 fl (80.0-94.0) L 04/28/17 05:30 MCH 26.7 pg (27.0-31.0) L 04/28/17 05:30 MCHC 33.5 g/dL (33.0-37.0) 04/28/17 05:30 RDW 13.7 % (11.5-14.5) 04/28/17 05:30 Plt Count 154 K/uL (130-400) 04/28/17 05:30 MPV 7.8 fl (7.2-11.7) 04/28/17 05:30 Neut % (Auto) 65.1 % (50.0-75.0) 04/28/17 05:30 Lymph % (Auto) 21.7 % (20.0-40.0) 04/28/17 05:30 [facility] % (Auto) 8.7 % (0.0-10.0) 04/28/17 05:30 Eos % (Auto) 4.0 % (0.0-4.0) 04/28/17 05:30 Baso % (Auto) 0.5 % (0.0-2.0) 04/28/17 05:30 Neut # 5.7 K/uL (1.8-7.0) 04/28/17 05:30 Lymph # 1.9 K/uL (1.0-4.3) 04/28/17 05:30 [facility] # 0.8 K/uL (0.0-0.8) 04/28/17 05:30 Eos # 0.3 K/uL (0.0-0.7) 04/28/17 05:30 Baso # 0.0 K/uL (0.0-0.2) 04/28/17 05:30 Neutrophils % (Manual) 78 % (42-75) H 04/26/17 16:25 Band Neutrophils % 3 % (0-2) H 04/26/17 16:25 Lymphocytes % (Manual) 8 % (20-50) L 04/26/17 16:25 Monocytes % (Manual) 10 % (0-10) 04/26/17 16:25 Eosinophils % (Manual) 1 % (0-7) 04/26/17 16:25 Platelet Estimate Normal (NORMAL) 04/26/17 16:25 Large Platelets Present 04/26/17 16:25 Hypochromasia (manual) Slight 04/26/17 16:25 Microcytosis (manual) Slight 04/26/17 16:25 PT 12.2 Seconds (9.8-13.1) 04/26/17 16:25 INR 1.1 (0.9-1.2) 04/26/17 16:25 APTT 27.9 Seconds (25.6-37.1) 04/26/17 16:25 Sodium 143 mmol/l (132-148) 04/28/17 05:30 Potassium 4.5 MMOL/L (3.6-5.0) 04/28/17 05:30 Chloride 104 mmol/L (98-107) 04/28/17 05:30 Carbon Dioxide 29 mmol/L (22-30) 04/28/17 05:30 Anion Gap 14 (10-20) 04/28/17 05:30 BUN 10 mg/dl (9-20) 04/28/17 05:30 Creatinine 1.1 mg/dL (0.8-1.5) 04/28/17 05:30 Est GFR ( Amer) > 60 04/28/17 05:30 Est GFR (Non-Af Amer) > 60 04/28/17 05:30 Random Glucose 102 mg/dL (75-110) 04/28/17 05:30 Calcium 9.0 mg/dL (8.4-10.2) 04/28/17 05:30 Total Bilirubin 2.2 mg/dl (0.2-1.3) H 04/27/17 05:40 AST 30 U/L (17-59) 04/27/17 05:40 ALT 43 U/L (21-72) 04/27/17 05:40 Alkaline Phosphatase 65 U/L (38-126) 04/27/17 05:40 Total Protein 7.1 G/DL (6.3-8.2) 04/27/17 05:40 Albumin 4.1 g/dL (3.5-5.0) 04/27/17 05:40 Globulin 3.0 gm/dL (2.2-3.9) 04/27/17 05:40 Albumin/Globulin Ratio 1.4 (1.0-2.1) 04/27/17 05:40 Urine Color Yellow (YELLOW) 04/26/17 16:48 Urine Clarity Slighty-cloudy (Clear) 04/26/17 16:48 Urine pH 6.0 (5.0-8.0) 04/26/17 16:48 Ur Specific [place] 1.027 (1.003-1.030) 04/26/17 16:48 Urine Protein 30 mg/dL (NEGATIVE) 04/26/17 16:48 Urine Glucose (UA) Neg mg/dL (Normal) 04/26/17 16:48 Urine Ketones Trace mg/dL (NEGATIVE) 04/26/17 16:48 Urine Blood Negative (NEGATIVE) 04/26/17 16:48 Urine Nitrate Negative (NEGATIVE) 04/26/17 16:48 Urine Bilirubin Negative (NEGATIVE) 04/26/17 16:48 Urine Urobilinogen 0.2-1.0 mg/dL (0.2-1.0) 04/26/17 16:48 Ur Leukocyte Esterase Neg [place]/uL (Negative) 04/26/17 16:48 Urine RBC (Auto) 2 /hpf (0-3) 04/26/17 16:48 Urine Microscopic WBC < 1 /hpf (0-5) 04/26/17 16:48 Urine Bacteria Rare (<OCC) 04/26/17 16:48 Discharge Exam - Head Exam Head Exam: ATRAUMATIC, NORMAL INSPECTION, NORMOCEPHALIC - Eye Exam Eye Exam: EOMI, Normal appearance, PERRL Pupil Exam: NORMAL ACCOMODATION, PERRL - Respiratory Exam Respiratory Exam: Clear to PA & Lateral, NORMAL BREATHING PATTERN, UNREMARKABLE - Cardiovascular Exam Cardiovascular Exam: REGULAR RHYTHM, RRR, +S1, +S2 - GI/Abdominal Exam GI & Abdominal Exam: Normal Bowel Sounds, Soft, Unremarkable - Extremities Exam Extremities exam: full ROM, normal capillary refill, normal inspection, pedal pulses present - Back Exam Back exam: FULL ROM - Neurological Exam Neurological exam: Alert, CN II-XII Intact, Normal Gait, Oriented x3, Reflexes Normal - Psychiatric Exam Psychiatric exam: Normal Affect, Normal Mood - Skin Skin Exam: Dry, Intact, Normal Color, Warm Discharge Plan - Discharge Medications Prescriptions: Amoxicillin/Clavulanate [Augmentin 875 MG-125 MG] 1 tab PO BID #14 tab oxyCODONE/Acetaminophen [Percocet 5/325 mg Tab] 1 tab PO Q6 PRN #10 tab PRN Reason: Pain, Moderate (4-7) - Follow Up Plan Condition: STABLE Disposition: HOME/ ROUTINE Additional Instructions: cleared by surgery for d/c, bw noted. no f/c, n/v/d. pain controlled. diego po final dx-acute ap w/ perf w/o sepsis/peritonitis doing well, f/u rmg/surgery, rted prn, emds per med rec
[2017-04-28] MEDS ORDERED: Influenza Vaccine 18yr & older 0.5 ML/45 MCG SYR IM ONE (11:00)
[2017-04-29 21:42] VITALS: O2SAT 98
== END 2017-04-28 14:49 | disposition home or self-care (01) | DRG 340 ==
LOC: H.ER 14:36 → H.ERHOLD 19:57 → H.MEDSURG1 04-27 00:35
PROVIDERS: ADMIT Family Medicine; ATTEND Family Medicine
PROC: 0DTJ4ZZ Resection of Appendix, Percutaneous Endoscopic Approach (ICD-10-PCS; principal; 2017-04-27 13:00)
PROC: 3E0234Z Introduction of Serum, Toxoid and Vaccine into Muscle, Percutaneous Approach (ICD-10-PCS; 2017-04-28)
DX: K35.2 Acute appendicitis with generalized peritonitis (principal); K76.0 Fatty (change of) liver, not elsewhere classified; R16.2 Hepatomegaly with splenomegaly, not elsewhere classified; Z23 Encounter for immunization